=== PATIENT | male | born 1945 | race Caucasian/White ===

== ENCOUNTER 2018-07-31 07:54 | Day surgery (SDC) | payer MEDICARE ==
[~2018-07-31] VITALS: Ht 182.9 cm; Wt 99.7 kg
[~2018-07-31 07:54] MED LIST: ARNU1INH3 PO; BIOFTAB PO; BISO5TAB5 PO; CALTTAB6 PO; CVS1CAP2 PO; FLOM0.4C39 PO; GABA-843 PO; GNP250TA9 PO; LIDOCAINE 2% INJ 100 MG/5 ML SDV (FOR ANES.) As Ordered ONE; NASA1SPR NARES; NS 1,000 ML IV ONE; OMEG12003 PO; OMEP-221 PO; PROPOFOL 200 MG/20 ML VIAL As Ordered ONE; REDCAP4 PO; ROPI1TAB PO; SERT-138 PO; TURM500C PO
--- NOTE | 2018-07-31 09:10 | ROOR ---
Patient Name: Sergey Fishman Procedure Date: 07/31/2018 8:57 AM Date of : 1945 Age: 73 Room: [facility] Gender: Male Note Status: Finalized Procedure: Upper Endoscopy + Biopsies Indications: Epigastric abdominal pain Providers: Gray Rivero MD Referring MD: EMMA NARVAEZ MD Requesting Provider: Medicines: Monitored Anesthesia Care Complications: No immediate complications. Procedure: Pre-Anesthesia Assessment: - The heart rate, respiratory rate, oxygen saturations, blood pressure, adequacy of pulmonary ventilation, and response to care were monitored throughout the procedure. The Endoscope was introduced through the mouth, and advanced to the second part of duodenum. The upper GI endoscopy was accomplished without difficulty. The patient tolerated the procedure well. Findings: The Z-line was variable and was found 40 cm from the incisors. No other significant abnormalities were identified in a careful examination of the stomach. Biopsies were taken with a cold forceps in the gastric antrum for Helicobacter pylori testing. The exam of the duodenum was otherwise normal. Impression: - Z-line variable, 40 cm from the incisors. - Biopsies were taken with a cold forceps for Helicobacter pylori testing. - The examination was otherwise normal. Recommendation: - Patient has a contact number available for emergencies. The signs and symptoms of potential delayed complications were discussed with the patient. Return to normal activities tomorrow. Written discharge instructions were provided to the patient. - High fiber diet. - Discharge patient to home. - Continue present medications. - Await pathology results. - Telephone GI clinic for pathology results in 1 week. - Check Portal Online for Path Results.([email or web address]) - The findings and recommendations were discussed with the patient's family. Gray Rivero MD Gray Rivero MD 07/31/2018 9:10:08 AM Electronically signed by Gray Rivero MD Number of Addenda: 0 Note Initiated On: 07/31/2018 8:57 AM Estimated Blood Loss: Estimated blood loss: none.
--- NOTE | 2018-07-31 09:24 | ROOR ---
Patient Name: Sergey Fishman Procedure Date: 07/31/2018 8:57 AM Date of : 1945 Age: 73 Room: [facility] Gender: Male Note Status: Finalized Procedure: Total Colonoscopy to Cecum Indications: Screening for colorectal malignant neoplasm Providers: Gray Rivero MD Referring MD: EMMA NARVAEZ MD Requesting Provider: Medicines: Monitored Anesthesia Care Complications: No immediate complications. Procedure: Pre-Anesthesia Assessment: - The heart rate, respiratory rate, oxygen saturations, blood pressure, adequacy of pulmonary ventilation, and response to care were monitored throughout the procedure. The Colonoscope was introduced through the anus and advanced to the cecum, identified by appendiceal orifice and ileocecal valve. The colonoscopy was performed without difficulty. The patient tolerated the procedure well. The quality of the bowel preparation was good. Findings: The perianal and digital rectal examinations were normal. Non-bleeding internal hemorrhoids were found during retroflexion. The hemorrhoids were small and Grade I (internal hemorrhoids that do not prolapse). No other significant abnormalities were identified in a careful examination of the remainder of the colon. The exam was otherwise without abnormality on direct and retroflexion views. Impression: - Non-bleeding internal hemorrhoids. - The examination was otherwise normal on direct and retroflexion views. - No specimens collected. - The exam was otherwise normal to the cecum. Recommendation: - Patient has a contact number available for emergencies. The signs and symptoms of potential delayed complications were discussed with the patient. Return to normal activities tomorrow. Written discharge instructions were provided to the patient. - High fiber diet. - Discharge patient to home. - Continue present medications. - Repeat colonoscopy for symptoms only. - Return to referring physician. - The findings and recommendations were discussed with the patient's family. Gray Rivero MD Gray Rivero MD 07/31/2018 9:24:40 AM Electronically signed by Gray Rivero MD Number of Addenda: 0 Note Initiated On: 07/31/2018 8:57 AM Estimated Blood Loss: Estimated blood loss: none.
[2018-07-31 10:00] VITALS: BP 156/75
== END 2018-07-31 10:20 | disposition home or self-care (01) ==
LOC: M OPP 07:54
PROVIDERS: ATTEND Internal Medicine Gastroenterology
DX: K64.0 First degree hemorrhoids (principal); K22.8 Other specified diseases of esophagus; R10.13 Epigastric pain; Z12.11 Encounter for screening for malignant neoplasm of colon
CPT/HCPCS: 43239; 88305; G0121

== ENCOUNTER → 2019-03-25 | Outpatient (CLI) | payer MEDICARE ==
[~2019-03-25] MED LIST changes: +BISO5TAB14 PO; -BISO5TAB5 PO; +FISH13602 PO; -LIDOCAINE 2% INJ 100 MG/5 ML SDV (FOR ANES.) As Ordered ONE; -NS 1,000 ML IV ONE; -PROPOFOL 200 MG/20 ML VIAL As Ordered ONE; -ROPI1TAB PO; +ROPI1TAB3 PO; +VITAD400CA PO
--- NOTE | 2019-03-25 16:30 | CR ---
DATE OF CONSULTATION: 03/25/2019 CHIEF COMPLAINT: Prostate cancer, [id number], [place] score 7 (3+4), PSA 5.1. HISTORY OF PRESENT ILLNESS: Mr. Fishman is a very pleasant 74-year-old gentleman who presented with elevated PSA in 2017 and prostatic biopsy at that time showed [place] 3+3, in 5 out of 12 cores, with 2 cores of atypical cells. Patient elected tp active surveilance. Follow up PSA cora to 5.1 in November 2018. He underwent prostatic biopsy on 02/28/2019 and pathology showed [place] 7 (3+4) involving 3 out of 12 cores and 3 cores showed Carolyn 6 (3+3). His TRE score is 0. He has no significant urinary symptoms. PAST MEDICAL HISTORY: 1. Osteoarthritis. 2. High blood pressure. 3. High cholesterol. 4. 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 6. Benign prostatic hypertrophy (BPH). 7. Impotence of organic origin. SURGICAL HISTORY: 1. Removal of right testicle, undescended, single surgery. 2. Appendectomy 1 week after he had a small intestinal surgery. 3. Left inguinal hernia repair in . 4. Prostatic biopsy 07/26/2017 and 02/28/2019. 5. Back surgery at L4-L5 in November 2018. CURRENT MEDICATIONS: - tamsulosin 0.4 mg - gabapentin 300 mg - omeprazole 40 mg - ProAir HFA - bisoprolol 5 mg - ropinirole HCL 1 mg - Osteo BiFlex - fish oil - probiotics - multivitamin - magnesium HEALTH MAINTENANCE: Pneumonia vaccination on 01/16/2018, influenza vaccination 12/06/2018. FAMILY HISTORY: Father age 77 of a heart attack. Mother at age 63 due to breast cancer. SOCIAL HISTORY: The patient is . He has never smoked. He denies alcohol abuse. SYSTEM REVIEW: CONSTITUTIONAL: Denies chills, fever, weight loss. HEENT: Denies blurry vision, double vision. He has hearing loss in both ears. CARDIOVASCULAR: Denied chest pain, palpitations. RESPIRATORY: Denies shortness of breath, cough or wheezing. GASTROINTESTINAL: Reports gastroesophageal reflux disease (GERD) and heartburn but denies constipation, diarrhea, indigestion. GENITOURINARY: Reports decreased urine stream, frequency every 3 to 4 hours, nocturia one to two times. Denies dysuria, hematuria, incomplete voiding, urgency. MUSCULOSKELETAL: Does report arthritis and bone/joint pain. SKIN : Denies rashes, bruising. NEUROLOGIC: Has numbness and tingling of fingers. PSYCHIATRIC: Denies anxiety or depression. ECOG performance scale: 0. PHYSICAL EXAMINATION: Vital signs; He weighs 219.6 pounds, temperature 97.4, pulse 72, respirations 16, blood pressure 131/72, oxygen saturation 98% on room air. General: Well developed, well nourished male who does not appear to be in apparent distress. The patient was alert and oriented. HEENT: Normocephalic, atraumatic. NECK: No cervical lymphadenopathy. CARDIOVASCULAR: Regular rate and rhythm. No murmurs. RESPIRATORY: Clear to auscultation. ABDOMEN: There are midline scars from previous surgery of small bowel and appendix operation, as well as left inguinal hernia. There are no palpable masses or splenomegaly. GENITOURINARY: Digital rectal examination revealed moderate sized prostate. There is diffuse nodularity, on the left apex to mid. Moderately hard in consistency. SKIN: There are no skin lesions. EXTREMITIES: No swelling, edema or cyanosis. NEUROLOGIC: Strength and sensation grossly intact. PSYCHIATRIC: Mood and affect appropriate. NEUROLOGIC: Mentioned in history of present illness. RADIOLOGICAL FINDINGS: MRI on 12/25/2018 showed no findings to suggest clinically significant prostate cancer. PSTHOLOGICAL FINDINGS: as in HPI ICD10 CODE: C61 ASSESSMENT/RECOMMENDATIONS: Mr. Fishman is a 74-year-old gentleman who has a diagnosis of Carolyn (3+3) prostate cancer found in 5 out of 12 cores in July 2017, PSA at that time was 4.01. Oncotype at that time showed low risk of disease. The patient entered to active surveillance. His most recent PSA cora to 5.1. MRI of the prostate was unremarkable. The patient underwent prostatic biopsy and the biopsy showed [place] 7 (3+4) in 3 of 12 cores and 3 cores were [place] 3+3, tumor involved both lobes. The patient was accompanied by his and his daughter, whose was treated for prostate cancer about 3 years ago. We have discussed the nature of the disease and treatment options, Patient is in favorable intermediate risk group of prostate cancer and options were discussed, including prostatectomy and radiation therapy, brachytherapy or combination of both. The patient wants to go along with the external radiation therapy. I discussed procedures and potential side effects, terminal superintendent and short term. I recommended fiducial markers for the planning, also possible hydrogel spacer placement. I am planning to deliver a dose of 7920 cGy in 44 fractions using IMRT. I have given them a chance to ask and questions and they were answered to their satisfaction. MTDD
== END ==
LOC: M ONCR 08:45
PROVIDERS: ATTEND Radiology Radiation Oncology
DX: C61 Malignant neoplasm of prostate (principal)

== ENCOUNTER → 2019-06-05 | Outpatient (RCR) | payer MEDICARE ==
[2019-05-21 14:47] LABS: BASO % 0.4 % (0.0-1.0); EOS # 0.3 10^3/uL (0.0-0.5); EOS % 3.2 % (0.0-3.0); HEMATOCRIT 45.9 % (42.0-52.0); HEMOGLOBIN 14.9 g/dl (13.5-17.5); LYMPH % 20.8 % (24.0-44.0); MEAN CORPUSCULAR HEMOGLOBIN 30.5 pg (27.0-33.0); MEAN CORPUSCULAR HGB CONC 32.5 g/dl (32.0-36.5); MEAN CORPUSCULAR VOLUME 93.9 fl (80.0-96.0); MONO # 0.8 10^3/uL (0.0-0.8); MONO % 8.6 % (0.0-5.0); NEUTROPHILS # 6.3 10^3/uL (1.5-8.5); NEUTROPHILS % 66.6 % (36.0-66.0); PLATELET COUNT, AUTOMATED 198 10^3/uL (150-450); RED BLOOD COUNT 4.89 10^6/uL (4.30-6.10); WHITE BLOOD COUNT 9.5 10^3/uL (4.0-10.0)
--- NOTE | 2019-05-21 15:23 | RADONC ---
RADIATION ONCOLOGY SIMULATION NOTE: DATE: 05/21/2019 CHART NUMBER: [id number] Mr. Fishman was taken to the CT scan for CT simulation of his prostate field. CT was accomplished without difficulty or discomfort. Radiation treatment planning is underway and radiation treatments will begin subsequently. An immobilization device was created and will be used throughout the course of treatment. It was created without difficulty or discomfort. I was physically present throughout the course of CT simulation.
--- NOTE | 2019-06-03 09:37 | RADONC ---
RADIATION ONCOLOGY PROGRESS NOTE DATE: 06/02/2019 CHART #: [id number] Mr. Fishman is presently at a dose of 540 cGy to his prostate and is tolerating his treatments quite well at this point with no significant difficulties related to his radiation therapy. He is having no real urinary or bowel difficulties. REVIEW OF SYSTEMS: The patient's review of systems is noncontributory. Denies nausea, vomiting, fevers, chills, night sweats, diplopia, headaches, anxiety or depression, anorexia, weight loss, visual disturbances, chest pain, urinary or bowel difficulties, bone pain, or neurological problems. PHYSICAL EXAMINATION: The patient's skin is in good condition with no evidence of radiation change present. There is no moist or dry desquamation. The remainder of his physical exam remains unchanged. Mr. Fishman is tolerating treatments quite well and radiation will continue as scheduled.
== END ==
LOC: M ONCR 05-21 13:52
PROVIDERS: ATTEND Radiology Radiation Oncology
DX: C61 Malignant neoplasm of prostate (principal)

== ENCOUNTER 2019-07-04 15:54 | Outpatient (RCR) | payer MEDICARE ==
--- NOTE | 2019-06-12 09:42 | RADONC ---
RADIATION ONCOLOGY PROGRESS NOTE DATE: 06/09/2019 CHART #: [id number] Mr. Fishman is presently at a dose of 1440 cGy to his prostate and is tolerating treatments quite well at this point with no complaints related to his radiation therapy. He has no urinary or bowel difficulties. No bone pain. REVIEW OF SYSTEMS: The patient's review of systems is noncontributory. Denies nausea, vomiting, fevers, chills, night sweats, diplopia, headaches, anxiety or depression, anorexia, weight loss, visual disturbances, chest pain, urinary or bowel difficulties, bone pain, or neurological problems. PHYSICAL EXAMINATION: The patient's skin is in good condition with no evidence of radiation change present. There is no moist or dry desquamation. The remainder of his physical exam remains unchanged. Mr. Fishman is tolerating treatments quite well and radiation will continue as scheduled.
--- NOTE | 2019-06-18 08:40 | RADONC ---
RADIATION ONCOLOGY PROGRESS NOTE DATE: 06/16/2019 CHART #: [id number] Mr. Fishman is presently at a dose of 2340 cGy to his prostate and is tolerating treatments quite well at this point with no complaints related to his radiation therapy. He is having no urinary or bowel difficulties and no bone pain. REVIEW OF SYSTEMS: The patient's review of systems is noncontributory. Denies nausea, vomiting, fevers, chills, night sweats, diplopia, headaches, anxiety or depression, anorexia, weight loss, visual disturbances, chest pain, urinary or bowel difficulties, bone pain, or neurological problems. PHYSICAL EXAMINATION: The patient's skin is in good condition with no evidence of moist or dry desquamation. The remainder of his physical exam remains unchanged. Mr. Fishman is tolerating treatments quite well and radiation will continue as scheduled.
--- NOTE | 2019-06-26 11:13 | RADONC ---
RADIATION ONCOLOGY PROGRESS NOTE: DATE: 06/23/2019 CHART NUMBER: [id number] Mr. Fishman is presently at a dose of 3240 cGy to his prostate and seminal vesicles and is tolerating treatments quite well at this point with no complaints related to his radiation therapy. He is having no urinary or bowel difficulties and on bone pain. REVIEW OF SYSTEMS: The patient's review of systems is noncontributory. He denies nausea, vomiting, fevers, chills, night sweats, diplopia, headaches, anxiety or depression, anorexia, weight loss, visual disturbances, chest pain, urinary or bowel difficulties, bone pain, or neurological problems. PHYSICAL EXAMINATION: The patient's skin is in good condition with no evidence of radiation change present. There is no moist or dry desquamation. The remainder of his physical exam remains unchanged. Mr. Fishman is tolerating treatments quite well and radiation will continue as scheduled.
== END 2019-07-06 ==
LOC: M ONCR 15:54
PROVIDERS: ATTEND Radiology Radiation Oncology
DX: C61 Malignant neoplasm of prostate (principal)

== ENCOUNTER 2019-07-30 15:55 | Outpatient (RCR) | payer MEDICARE ==
--- NOTE | 2019-07-09 11:04 | RADONC ---
RADIATION ONCOLOGY PROGRESS NOTE DATE: 07/01/2019 CHART #: [id number] Mr. Fishman is presently at a dose of 4140 cGy to his prostate and seminal vesicles and is tolerating treatments quite well at this point with no complaints related to his radiation therapy. He is having no urinary or bowel difficulties and no bone pain. REVIEW OF SYSTEMS: The patient's review of systems is noncontributory. Denies nausea, vomiting, fevers, chills, night sweats, diplopia, headaches, anxiety or depression, anorexia, weight loss, visual disturbances, chest pain, urinary or bowel difficulties, bone pain, or neurological problems. PHYSICAL EXAMINATION: The patient's skin is in good condition with no evidence of radiation change present. There is no moist or dry desquamation. The remainder of his physical exam remains unchanged. Mr. Fishman is tolerating treatments quite well and radiation will continue as scheduled.
--- NOTE | 2019-07-13 12:28 | RADONC ---
RADIATION ONCOLOGY PROGRESS NOTE DATE: 07/07/2019 CHART NUMBER: [id number] PROGRESS NOTE: Mr. Fishman is presently at a dose of 4860 cGy to his prostate and seminal vesicles and is tolerating treatments quite well at this point with no significant difficulties related to his radiation therapy other than some fatigue and some urinary hesitation. REVIEW OF SYSTEMS: The patient's review of systems is positive for his fatigue and urinary hesitation, but is otherwise noncontributory. Denies nausea, vomiting, fevers, chills, night sweats, diplopia, headaches, anxiety or depression, anorexia, weight loss, visual disturbances, chest pain, urinary or bowel difficulties, bone pain, or neurological problems. PHYSICAL EXAMINATION: The patient's skin is in good condition with no evidence of moist or dry desquamation. The remainder of his physical exam remains unchanged. Mr. Fishman is tolerating treatments quite well and radiation will continue as scheduled.
--- NOTE | 2019-07-18 10:54 | RADONC ---
RADIATION ONCOLOGY PROGRESS NOTE DATE: 07/14/2019 CHART NUMBER: [id number] PROGRESS NOTE: Mr. Fishman is presently at a dose of 5760 cGy to his prostate and is tolerating treatments fairly well with no significant difficulties related to his radiation therapy other than some urinary frequency and burning. REVIEW OF SYSTEMS: The patient's review of systems is positive for his urinary frequency but is otherwise noncontributory. Denies nausea, vomiting, fevers, chills, night sweats, diplopia, headaches, anxiety or depression, anorexia, weight loss, visual disturbances, chest pain, bowel difficulties, bone pain, or neurological problems. PHYSICAL EXAMINATION: The patient's skin is in good condition with no evidence of moist or dry desquamation. The remainder of his physical exam remains unchanged. Mr. Fishman is tolerating treatments quite well and radiation will continue as scheduled.
--- NOTE | 2019-07-23 13:36 | RADONC ---
RADIATION ONCOLOGY PROGRESS NOTE DATE: 07/21/2019 CHART #: [id number] Mr. Fishman is presently at a dose of 6660 cGy to his prostate and is tolerating treatments quite well at this point with no significant difficulties related to his radiation therapy. He has no urinary or bowel problems and no bone pain. REVIEW OF SYSTEMS: The patient's review of systems is noncontributory. Denies nausea, vomiting, fevers, chills, night sweats, diplopia, headaches, anxiety or depression, anorexia, weight loss, visual disturbances, chest pain, urinary or bowel difficulties, bone pain, or neurological problems. PHYSICAL EXAMINATION: The patient's skin is in good condition with no evidence of moist or dry desquamation. The remainder of his physical exam remains unchanged. Mr. Fishman is tolerating treatments quite well and radiation will continue as scheduled.
--- NOTE | 2019-07-31 18:35 | RADONC ---
RADIATION ONCOLOGY NOTE DATE: 07/28/2019 CHART NUMBER: [id number] Mr. Fishman is a 74-year-old gentleman who carries a diagnosis of prostate CA. So far, he has received a dose of 7560 CGY in 44 fractions. He is tolerating treatment very well without any significant side effect. REVIEW OF SYSTEMS: He has no urinary or bowel problems. Denies any bone pain. Denies nausea, vomiting, fever, chills or bone pain. PHYSICAL EXAMINATION: Patient is in good general condition. No evidence of skin changes. Remainder of his physical examination remains unchanged. Overall, Mr. Fishman is tolerating treatment very well and radiation therapy will continue as planned. MTDD
--- NOTE | 2019-08-05 17:55 | RADONC ---
RADIATION ONCOLOGY PROGRESS NOTE DATE: 07/30/2019 CHART NUMBER: [id number] Mr. Fishman carries a diagnosis of prostate Ca. He completed radiation therapy today. He has received a total dose of 7940 cGy in 44 fractions, 62 elapsed days from 05/29/2019 and 07/30/2019. Initially, a dose of 5400 cGy was delivered in 30 fractions using 6 MEV photon beams using IMRT to the prostate and the seminal vesicles. Next, 2520 cGy was boosted to the prostate using 6 MEV photon beams in 14 fractions with IMRT REVIEW OF SYSTEMS: He has no complaints. He denies urinary symptoms or gastrointestinal (GI) symptoms. He denies urinary frequency, dysuria, hematuria, or nocturia, or bone pain. PHYSICAL EXAMINATION: The patient is in good general condition. There is no evidence of skin changes. Remainder of physical examination is unchanged. Overall, he tolerated treatment very well. He was advised to continue his followup care with the physicians involved, and he was also asked to return in 3 months for followup. ALBA
== END 2019-08-05 ==
LOC: M ONCR 15:55
PROVIDERS: ATTEND Radiology Radiation Oncology
DX: C61 Malignant neoplasm of prostate (principal)

== ENCOUNTER → 2019-08-27 | Outpatient (CLI) | payer MEDICARE | LOC: M ONCR 15:36 | PROVIDERS: ATTEND Radiology Radiation Oncology | DX: C61 Malignant neoplasm of prostate (principal) ==

== ENCOUNTER → 2019-11-26 | Outpatient (CLI) | payer MEDICARE ==
--- NOTE | 2019-11-26 16:19 | RADONC ---
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 Diagnosis/Treatment History Oncologic History PSA trend 11/2018 5.1 ng/ml 08/25/19 2.01 11/24/19 1.14 Interval History He feels well. Has nocturia 1-2x. Taking flomax QAM. Says that when he started flomax they told him to take it in the morning. No significant daytime frequency or urgency. No GI complaints. Has regular bowel movements without hematochezia. He has no erectile function. Not a concern for him predates RT. Current Therapy Surveillance Stage Favorable intermediate risk prostate cancer T1c [place] 3+4=7 PSA 5.1 Social History: Non-smoker Denies ETOH use Allergies / Meds Allergies: Coded Allergies: Penicillins (Verified Allergy, Mild, RASH, 07/25/18) Home Meds Reported Medications Vitamin D (Vitamin D3) 10 Mcg Tablet, 10 MCG PO DAILY, TAB 03/25/19 [place]-3S/Dha/Epa/Fish Oil (Fish Oil [place]-3 Softgel) 1 Each Capsule.dr, 1 CAP PO 03/25/19 Bisoprolol Fumarate (Bisoprolol Fumarate) 5 Mg Tablet, 1 TAB PO DAILY for 30 Days, #30 TAB 07/25/18 Magnesium Oxide (Magnesium) 250 Mg Tablet, 1 TAB PO DAILY for 30 Days, #30 TAB 07/25/18 Rutin/Hesp/Bioflav/C/[id number] (Bioflex Tablet) 1 Each Tablet, 1 TAB PO DAILY, TAB 07/25/18 Lactobacillus Combo No.10 (Probiotic) 1 Each Capsule, 1 TAB PO DAILY for 30 Days, #30 TAB 07/25/18 Turmeric/Turmeric Root Extract (Turmeric 500 mg Capsule) 1 Each Capsule, 500 MG PO DAILY, CAP 07/25/18 [place]/D3/Mag11/Zinc/Carton Marker Machine/Cornelio/Bor (Caltrate 600+D Plus Tablet) 1 Each Tablet, 1 TAB PO DAILY for 30 Days, #30 TAB 07/25/18 Triamcinolone Acetonide (Nasacort) 10.8 Ml [place], 1 SPRAY NARES QPM for 30 Days, #10.8 ML 07/25/18 Red Yeast Rice (Red Yeast Rice) 600 Mg Capsule, 600 MG PO DAILY, CAP 07/25/18 Gabapentin (Gabapentin) 300 Mg Capsule, 1 CAP PO TID for 30 Days, #90 CAP 07/25/18 Omeprazole (Omeprazole) 40 Mg Capsule.dr, 1 CAP PO DAILY for 30 Days, #30 CAP 07/25/18 Ropinirole HCl (Ropinirole HCl) 1 Mg Tablet, 1 TAB PO QPM for 30 Days, #30 TAB 07/25/18 Fluticasone Furoate (Arnuity Ellipta) 200 Mcg Blst.w.dev, 1 PUFF PO DAILY for 30 Days, #1 EA 07/25/18 Tamsulosin HCl (Flomax) 0.4 Mg Capsule, 0.4 MG PO DAILY for 30 Days, #30 CAP 07/25/18 Review of Systems Review of Systems Constitutional: Denies: ROS Unabtainable, Chills, Fever, Malaise, Night Sweats, Weakness, Fatigue, Weight Loss, Lethargy, Normal appetite, Other symptoms Eyes: Denies: Pain, Vision change, Conjunctivae inflammation, Eyelid inflammat ion, Redness, Other HEENT: Denies: Head Aches, Ear Pain, Dysphagia, Sinus Congestion, Post Nasal Drip, Sore Throat, Epistaxis, Other Symptoms Skin: Denies: Rash, Lesions, Jaundice, Bruising, Other Pulmonary: Denies: Dyspnea, Cough, Pleuritic Chest Pain, Other Symptoms Cardiovascular: Denies: Chest Pain, Palpitations, Orthopnea, Paroxysmal Noc. Dyspnea, Edema, Lt Headedness, Other Symptoms Gastrointestinal: Denies: Nausea, Vomiting, Abdominal Pain, Diarrhea, Constipation, Melena, Hematochezia, Other Symptoms Genitourinary: Denies: Dysuria, Frequency, Incontinence, Hematuria, Retention, Other Symptoms Hematologic: Denies: Bruising, Bleeding Excessively, Petecchia, Purpura, Enlarged Lymph Nodes, Other Hematologic Endocrine: Denies: Polydipsia, Polyphagia, Polyuria, Heat Intolerance, Cold Intolerance, Other Endocrine Sx Musculoskeletal: Denies: Neck pain, Shoulder pain, Arm pain, Back pain, Hand pain, Leg pain, Foot pain, Joint pain, Muscle pain, Spasms, Gout, Joint sweling, Muscle stiffness, Midthoracic pain, Other Neurological: Denies: Weakness, Numbness, Incoordination, Change in Speech, Confusion, Seizures, Other Symptoms Psych: Denies: Mood Normal, Anxiety, Depression, Memory Issues, Thoughts of Self Harm, Anger, Thoughts of harming Other, Other Psych Physical Examination Vital Signs Wt 219 lbs T 97.2 P 77 RR 18 BP 136/74 O2 99% Pain 0 Fatigue 0 General Exam: Positive: Alert, Cooperative, No Acute Distress Eye Exam: Positive: PERRLA, EOMI ENT EXAM: Positive: Atraumatic, Mucous membr. moist/pink Neck Exam: Positive: Supple Chest Exam: Positive: Clear to auscultation, Normal air movement Heart Exam: Positive: Rate Normal, Regular Rhythm Abdomen Exam: Positive: Normal bowel sounds, Soft; Negative: Tenderness Extremity Exam: Negative: Edema Skin Exam: Positive: Nl turgor and temperature, Rash Neuro Exam: Positive: Normal Gait, Normal Speech, Cranial Nerves 3-12 NL Psych Exam: Positive: Mental status NL, Mood NL, Anxiety Other Physical Findings exam deferred, downtrending PSA Diagnostic and Laboratory Diagnostic Review Radiologic images, relevant labs and pathology reports were personally reviewed and discussed with Mr. Fishman. Assessment and Plan Impression Assessment Mr. 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 He is doing well with a downtrending PSA. Explained that at this juncture I would not recommend checking PSA greater than q6m and that I would be happy to split follow up with Dr. Dow his urologist, and see him again in 12 months with PSA. With respect to his flomax I asked him to switch the time he takes it to QPM, this may reduce the number of times he wakes at night to void. He said he would try this. Performance Status ECOG 0 Plan 12 month follow up with PSA Can split follow up with urology Mr. Fishman was encouraged to call with questions or concerns in the interim period. CLARK GONSALVES MD Nov 26, 2019 16:19
== END ==
LOC: M ONCR 15:20
PROVIDERS: ATTEND General Practice
DX: C61 Malignant neoplasm of prostate (principal)

== ENCOUNTER → 2020-05-27 | Outpatient (CLI) | payer MEDICARE ==
[~2020-05-27] MED LIST changes: +GABA-282 PO; -GABA-843 PO
--- NOTE | 2020-05-27 16:39 | RADONC ---
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 Diagnosis/Treatment History Oncologic History PSA trend 11/2018 5.1 ng/ml 08/25/19 2.01 11/24/19 1.14 04/26/20 0.98 Interval History Sergey is here with his nadira . Recently switched to trelegy inhaler. Breathing well. Having stable 1-2x nocturia. Prefers taking his flomax in the morning because he values decreased daytime frequency as opposed to nighttime. He is having regular BMs q1-2 days. No bleeding with bowel movements. Appetite good. Energy levels fair, has some persistent fatigue, which is longstanding. Current Therapy Surveillance Stage Favorable intermediate risk prostate cancer T1c [place] 3+4=7 PSA 5.1 Social History: Non-smoker Non-drinker Allergies / Meds Allergies: Coded Allergies: Penicillins (Verified Allergy, Mild, RASH, 07/25/18) Home Meds Reported Medications Vitamin D (Vitamin D3) 10 Mcg Tablet, 10 MCG PO DAILY, TAB 03/25/19 [place]-3S/Dha/Epa/Fish Oil (Fish Oil [place]-3 Softgel) 1 Each Capsule.dr, 1 CAP PO 03/25/19 Bisoprolol Fumarate (Bisoprolol Fumarate) 5 Mg Tablet, 1 TAB PO DAILY for 30 Days, #30 TAB 07/25/18 Magnesium Oxide (Magnesium) 250 Mg Tablet, 1 TAB PO DAILY for 30 Days, #30 TAB 07/25/18 Rutin/Hesp/Bioflav/C/[id number] (Bioflex Tablet) 1 Each Tablet, 1 TAB PO DAILY, TAB 07/25/18 Lactobacillus Combo No.10 (Probiotic) 1 Each Capsule, 1 TAB PO DAILY for 30 Days, #30 TAB 07/25/18 Turmeric/Turmeric Root Extract (Turmeric 500 mg Capsule) 1 Each Capsule, 500 MG PO DAILY, CAP 07/25/18 [place]/D3/Mag11/Zinc/Head [employer] Compliance/Cornelio/Bor (Caltrate 600+D Plus Tablet) 1 Each Tablet, 1 TAB PO DAILY for 30 Days, #30 TAB 07/25/18 Triamcinolone Acetonide (Nasacort) 10.8 Ml [place], 1 SPRAY NARES QPM for 30 Days, #10.8 ML 07/25/18 Red Yeast Rice (Red Yeast Rice) 600 Mg Capsule, 600 MG PO DAILY, CAP 07/25/18 Gabapentin (Gabapentin) 300 Mg Capsule, 1 CAP PO TID for 30 Days, #90 CAP 07/25/18 Omeprazole (Omeprazole) 40 Mg Capsule.dr, 1 CAP PO DAILY for 30 Days, #30 CAP 07/25/18 Ropinirole HCl (Ropinirole HCl) 1 Mg Tablet, 1 TAB PO QPM for 30 Days, #30 TAB 07/25/18 Fluticasone Furoate (Arnuity Ellipta) 200 Mcg Blst.w.dev, 1 PUFF PO DAILY for 30 Days, #1 EA 07/25/18 Tamsulosin HCl (Flomax) 0.4 Mg Capsule, 0.4 MG PO DAILY for 30 Days, #30 CAP 07/25/18 Review of Systems Review of Systems Constitutional: Reports: Fatigue; Denies: Weight Loss Eyes: Denies: Pain HEENT: Denies: Head Aches Pulmonary: Reports: Dyspnea; Denies: Cough Cardiovascular: Denies: Chest Pain, Palpitations Gastrointestinal: Denies: Nausea, Vomiting, Diarrhea, Melena, Hematochezia Genitourinary: Denies: Dysuria, Frequency, Incontinence, Retention Hematologic: Denies: Bruising Musculoskeletal: Reports: Back pain; Denies: Neck pain Neurological: Denies: Weakness, Numbness Psych: Reports: Mood Normal Physical Examination Vital Signs Wt 226 lbs T 98 P 60 RR 16 BP 138/76 O2 98% Pain 0 Fatigue 0 General Exam: Positive: Alert, Cooperative, No Acute Distress Eye Exam: Positive: PERRLA, EOMI ENT EXAM: Positive: Atraumatic Neck Exam: Positive: Supple Chest Exam: Positive: Clear to auscultation Heart Exam: Positive: Rate Normal Abdomen Exam: Positive: Soft; Negative: Tenderness Extremity Exam: Negative: Edema Skin Exam: Positive: Nl turgor and temperature Neuro Exam: Positive: Normal Gait, Normal Speech, Cranial Nerves 3-12 NL Psych Exam: Positive: Mental status NL Diagnostic and Laboratory Diagnostic Review Radiologic images, relevant labs and pathology reports were personally reviewed and discussed with Mr. Fishman. Assessment and Plan Impression Assessment Mr. 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 He is doing well with ongoing favorable PSA response now 0.98. He has no sign ificant urinary symptoms or bother, well-compensated on daily flomax. He has ample refills of this from his PCP's office. He informed me that Dr. Alexander wishes for him to follow with me primarily. A re-referral could be placed if there is future sign of PSA failure or new urologic problems. Thus I will see Sergey again in 6 months time with a PSA check. Because of his persistent fatigue I contemplated checking testosterone as well but with his history, I would not act on low-t at this timepoint, thus I did not order it. Performance Status ECOG 1 Plan 6 months with PSA Mr. Fishman was encouraged to call with questions or concerns in the interim period. Billing Statement Total time of [21] minutes was spent preparing for the visit [2], obtaining HPI [5], examining the patient [1], reviewing diagnostic tests [1], discussing management options [3], coordinating care [1], and writing this note [8]. CLARK GONSALVES MD May 27, 2020 16:39
== END ==
LOC: M ONCR 14:57
PROVIDERS: ATTEND General Practice
DX: C61 Malignant neoplasm of prostate (principal)

== ENCOUNTER → 2020-12-01 | Outpatient (CLI) | payer MEDICARE ==
[~2020-12-01] MED LIST changes: +FLUO20CA22 PO
--- NOTE | 2020-12-01 16:35 | RADONC ---
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 Diagnosis/Treatment History Oncologic History PSA trend 11/2018 5.1 ng/ml 08/25/19 2.01 11/24/19 1.14 04/26/20 0.98 10/19/20 0.63 Interval History Sergey has no bowel or bladder complaints. He is on flomax tolerating this well. He sees Dr. Alexander in May 2021. He does have persistent fatigue and he and his feel that he is depressed. He is interested in medication for this. Current Therapy Surveillance Stage Favorable intermediate risk prostate cancer T1c [place] 3+4=7 PSA 5.1 Social History: Non-smoker Non-drinker Allergies / Meds Allergies: Coded Allergies: Penicillins (Verified Allergy, Mild, RASH, 07/25/18) Home Meds Active Scripts Fluoxetine Hcl (Fluoxetine HCl) 20 Mg Capsule, 1 CAP PO QHS for 30 Days, #30 CAP 5 Refills Prov:CLARK GONSALVES MD 12/01/20 Reported Medications Vitamin D (Vitamin D3) 10 Mcg Tablet, 10 MCG PO DAILY, TAB 03/25/19 [place]-3S/Dha/Epa/Fish Oil (Fish Oil [place]-3 Softgel) 1 Each Capsule., 1 CAP PO 03/25/19 Bisoprolol Fumarate (Bisoprolol Fumarate) 5 Mg Tablet, 1 TAB PO DAILY for 30 Days, #30 TAB 07/25/18 Magnesium Oxide (Magnesium) 250 Mg Tablet, 1 TAB PO DAILY for 30 Days, #30 TAB 07/25/18 [place]/Hesp/Bioflav/C/[id number] (Bioflex Tablet) 1 Each Tablet, 1 TAB PO DAILY, TAB 07/25/18 Lactobacillus Combo No.10 (Probiotic) 1 Each Capsule, 1 TAB PO DAILY for 30 Days, #30 TAB 07/25/18 Turmeric/Turmeric Root Extract (Turmeric 500 mg Capsule) 1 Each Capsule, 500 MG PO DAILY, CAP 07/25/18 [place]/D3/Mag11/Zinc/Watch Case Polisher/Cornelio/Bor (Caltrate 600+D Plus Tablet) 1 Each Tablet, 1 TAB PO DAILY for 30 Days, #30 TAB 07/25/18 Triamcinolone Acetonide (Nasacort) 10.8 Ml [place], 1 SPRAY NARES QPM for 30 Days, #10.8 ML 07/25/18 Red Yeast Rice (Red Yeast Rice) 600 Mg Capsule, 600 MG PO DAILY, CAP 07/25/18 Gabapentin (Gabapentin) 300 Mg Capsule, 1 CAP PO TID for 30 Days, #90 CAP 07/25/18 Omeprazole (Omeprazole) 40 Mg Capsule.dr, 1 CAP PO DAILY for 30 Days, #30 CAP 07/25/18 Ropinirole HCl (Ropinirole HCl) 1 Mg Tablet, 1 TAB PO QPM for 30 Days, #30 TAB 07/25/18 Fluticasone Furoate (Arnuity Ellipta) 200 Mcg Blst.w.dev, 1 PUFF PO DAILY for 30 Days, #1 EA 07/25/18 Tamsulosin HCl (Flomax) 0.4 Mg Capsule, 0.4 MG PO DAILY for 30 Days, #30 CAP 07/25/18 Review of Systems Review of Systems Constitutional: Reports: Fatigue; Denies: Weight Loss Eyes: Denies: Pain HEENT: Denies: Head Aches Skin: Denies: Rash Cardiovascular: Denies: Chest Pain Gastrointestinal: Denies: Abdominal Pain, Hematochezia Genitourinary: Reports: Frequency Musculoskeletal: Denies: Neck pain, Back pain Neurological: Denies: Weakness, Numbness Psych: Reports: Depression Physical Examination Vital Signs Wt 226 lbs T 96.2 P 73 RR 17 BP 153/86 O2 96% Pain 0 Fatigue 5 General Exam: Alert, Cooperative, No Acute Distress Eye Exam: PERRLA ENT EXAM: Atraumatic Neck Exam: Supple Chest Exam: Clear to auscultation Heart Exam: Rate Normal Abdomen Exam: Soft Extremity Exam: Negative: Edema Neuro Exam: Normal Gait, Normal Speech, Cranial Nerves 3-12 NL Psych Exam: Mental status NL Diagnostic and Laboratory Diagnostic Review Radiologic images, relevant labs and pathology reports were personally reviewed and discussed with Mr. Fishman. Assessment and Plan Impression Assessment Mr. 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 His PSA is under excellent control and he has no urinary or bowel complaints. I will split follow up with Dr. Alexander and see him again in 12 months with a PSA check. For his concern of depression, I discussed starting prozac 20 mg QHS, I cautioned that it will take 4-6 weeks to note an effect. If he has any problems with the medication he can call me in the meantime. If this proves ineffective or inadequate, then I urged him to talk to Dr. Gandara about other means to address this. Performance Status ECOG 0 Plan Prozac 20 mg QHS Follow up in 12 months with PSA Mr. Fishman was encouraged to call with questions or concerns in the interim period. Billing Statement Total time of [21] minutes was spent preparing for the visit [1], obtaining HPI [5], examining the patient [1], reviewing diagnostic tests [1], discussing management options [5], coordinating care [3], and writing this note [5]. CLARK GONSALVES MD Dec 01, 2020 16:34
== END ==
LOC: M ONCR 14:58
PROVIDERS: ATTEND General Practice
DX: C61 Malignant neoplasm of prostate (principal); R45.89 Other symptoms and signs involving emotional state; Z92.3 Personal history of irradiation; Z88.0 Allergy status to penicillin; Z79.899 Other long term (current) drug therapy

== ENCOUNTER → 2021-12-01 | Outpatient (CLI) | payer MEDICARE ==
[~2021-12-01] MED LIST changes: +FLUO40CA PO; -OMEP-221 PO; +OMEP40CA5 PO
[2021-12-01 14:42] LABS: PROSTATIC SPECIFIC AG MONITOR 0.42 NG/ML (< 4.00)
== END ==
LOC: M ONCR 12:27
PROVIDERS: ATTEND General Practice
DX: C61 Malignant neoplasm of prostate (principal); F32.A Depression, unspecified; K92.1 Melena; M54.50 Low back pain, unspecified; R53.83 Other fatigue; M79.604 Pain in right leg; M79.605 Pain in left leg; Z88.0 Allergy status to penicillin; Z79.899 Other long term (current) drug therapy; Z92.3 Personal history of irradiation
CPT/HCPCS: 36415; 84153; 84403; G0463

== ENCOUNTER → 2022-12-01 | Outpatient (CLI) | payer MEDICARE ==
[~2022-12-01] MED LIST changes: -ROPI1TAB3 PO; +ROPI1TAB73 PO
== END ==
LOC: M ONCR 13:05
PROVIDERS: ATTEND General Practice
DX: C61 Malignant neoplasm of prostate (principal); Z71.2 Person consulting for explanation of examination or test findings; Z79.51 Long term (current) use of inhaled steroids; Z79.899 Other long term (current) drug therapy; Z88.0 Allergy status to penicillin; Z88.1 Allergy status to other antibiotic agents; Z92.3 Personal history of irradiation

== ENCOUNTER → 2023-12-04 | Outpatient (CLI) | payer MEDICARE ==
[~2023-12-04] MED LIST changes: +FLUO-365 PO; -FLUO20CA22 PO; +GABA-1172 PO; -GABA-282 PO
== END ==
LOC: M ONCR 12:40
PROVIDERS: ATTEND General Practice
DX: C61 Malignant neoplasm of prostate (principal); N39.3 Stress incontinence (female) (male); Z88.0 Allergy status to penicillin; Z88.1 Allergy status to other antibiotic agents; Z79.51 Long term (current) use of inhaled steroids; Z79.899 Other long term (current) drug therapy; Z92.3 Personal history of irradiation